=== PATIENT | female | born 1990 | race Two or more races ===

== ENCOUNTER 2025-06-07 19:06 | Emergency (ER) | payer MEDICAID, SELFPAY ==
[2025-06-07 20:01] VITALS: BP 107/61; PULSE 94; RESP 19; TEMP 37.3; O2SAT 100; BMI 49.4
--- NOTE | 2025-06-07 20:07 | XR_ITS ---
Examination: Complete OB ultrasound greater than 14 weeks Date and time of exam: June 07, 2025, 2100 hrs. Indications: Vaginal bleeding pelvic and back pain today Findings: Viable intrauterine single fetus with single amniotic sac breech Cardiac motion 147 BPM Placenta grade 1. Nuchal cord insertion seen. Amniotic fluid adequate. Cervix 4.1 cm spine maternal right. Right ovary obscured by bowel gas. Left ovary 3.4 cm . Composite estimated gestational age based on BPD, head circumference, abdominal circumference, femur length is 15 weeks 4 days Estimated weight 1 25 g. Survey of intracranial anatomy, spinal anatomy, abdominal anatomy, four-chamber heart performed with no abnormalities identified. Impression: Viable intrauterine gestation breech presentation
--- NOTE | 2025-06-07 20:16 | PD.EDVAGBL ---
ED OB Contraction Preg RMI/HPI General Chief complaint: Abdominal Pain Stated complaint: VAG BLEED 15 WEEKS PREGNAT Time Seen by Provider: 06/07/25 20:07 Arrival date/time: 06/07/25 19:06 34F at approximately 15 weeks and with history of psych presents to ED with 2 day of pelvic/back pain and and vaginal bleeding. Patient denies dysuria. Limitations: no limitations Related Data Home Medications ?Medication ?Instructions ?Recorded ?Confirmed semaglutide (weight loss) 2.4 2.4 mg subcut QWEEK 07/26/24 07/26/24 mg/0.75 mL subcutaneous pen injector (Wegovy) sertraline 50 mg tablet 50 mg PO QDAY 07/26/24 07/26/24 Previous Rx's ?Medication ?Instructions ?Recorded ibuprofen 600 mg tablet 600 mg PO Q8H PRN pain (scale 12/17/21 score 4-6) #15 tabs Allergies Allergy/AdvReac Type Severity Reaction Status Date / Time acetaminophen (From Vicodin) Allergy Rash Verified 07/26/24 14:21 hydrocodone (From Vicodin) Allergy Rash Verified 07/26/24 14:21 Review of Systems Review of Systems Systems Reviewed: All systems reviewed, normal except as documented Constitutional Constitutional: Reports system reviewed and no additional complaints, except as documented, Denies fever(s) and Denies headache(s) ENT Ears, Nose, Mouth, and Throat: Denies disequilibrium and Denies headache(s) Cardiovascular Cardiovascular: Reports system reviewed and no additional complaints, except as documented, Denies chest pain and Denies dyspnea Respiratory Respiratory: Reports system reviewed and no additional complaints, except as documented, Denies cough and Denies dyspnea Gastrointestinal Gastrointestinal: Reports system reviewed and no additional complaints, except as documented, Denies abdominal pain, Denies nausea and Denies vomiting Genitourinary Genitourinary: Reports as per HPI, Reports abnormal vaginal bleeding, Reports flank pain and Reports pelvic pain Neurologic Neurologic: Reports system reviewed and no additional complaints, except as documented, Denies confusion, Denies disequilibrium and Denies headache(s) Psychiatric Psychiatric: Denies confusion Past Medical History Past Medical History NEUROLOGIC: Negative Neurological Disorders or Seizures CARDIAC: Negative Cardiac Disorders or Congestive Heart Failure RESPIRATORY: Positive Sleep Apnea; Negative Chronic Obstructive Pulmonary Disease (COPD) GASTROINTESTINAL: Positive Gastrointestinal Disorders, Gall Bladder Disease, Gastroesophageal Reflux Disease and Obesity; Negative Hepatitis or Colorectal Cancer GENITOURINARY: Negative Genitourinary Disorders, Renal Disease or Prostate Cancer REPRODUCTIVE: Positive Previous Pregnancies; Negative Breast Cancer, Endometriosis, Pelvic Inflammatory Disease, Testicular Cancer or Uterine Prolapse MUSCULOSKELETAL: Negative Musculoskeletal Disorders or Bone Cancer ENDOCRINE: Negative Endocrine Disorders, Diabetes Mellitus Type 1, Diabetes Mellitus Type 2, Hyperthyroidism or Hypothyroidism HEMATOLOGIC: Negative Blood Disorders or Anemia PSYCHO/SOCIAL: Positive Anxiety; Negative Depression or Post Traumatic Stress Disorder OTHER HISTORY: Positive Chicken Pox; Negative Hospitalization, Autoimmune Disease, Down Syndrome, Developmental Delay, Shingles, Falls, Blood Transfusions, Anesthesia Reactions, Organ Transplant, Chemotherapy, Radiation Therapy, Hyperbaric Therapy, MRSA, VRSA, Vancomycin-Resistant Enterococci, Human Immunodeficiency Virus (HIV), Measles, Mumps, Rubella ([place] Measles), Pertussis, Clostridium Difficile, Cancer, Breast Cancer, Cervical Cancer, Colorectal Cancer, Lung Cancer, Ovarian Cancer, Prostate Cancer or Testicular Cancer Family History FAMILY HISTORY: Negative Family Psychiatric Problems, Family Respiratory Disorders, Family Cardiac Disorders, Family Gastrointestinal Problems, Family Cancer, Family Surgery or Family Anesthesia Reaction Surgical History SURGICAL: Negative Cardiac Surgery, Endocrine Surgery, Ear Surgery, Abdominal Surgery, Nephrectomy, Joint Replacement, Neurologic Surgery, Mastectomy, Lumpectomy, Hysterectomy, Tubal Ligation, Section or Organ Transplant Social History SMOKING STATUS: Never smoker SECOND HAND EXPOSURE: No ED Exam General Limitations: Present no limitations General appearance: Present alert and in no apparent distress Head Head exam: Present atraumatic Eye Eye exam: Present normal appearance, PERRL and EOMI ENT ENT exam: Present normal exam, normal oropharynx and mucous membranes moist Neck Neck exam: Present normal inspection, full ROM and trachea midline Chest Chest inspection: Present normal inspection and symmetric chest wall rise Respiratory Respiratory exam: Present normal lung sounds bilaterally Cardiovascular Cardiovascular exam: Present regular rate, normal rhythm and normal heart sounds Abdominal Exam Abdominal exam: Present soft and normal bowel sounds Extremities Exam Extremities exam: Present normal inspection and full ROM Back Exam Back exam: Present normal inspection and full ROM Neurological Exam Neurological exam: Present alert, oriented X3 and CN II-XII intact Psychiatric Psychiatric exam: Present normal affect and normal mood Skin Skin exam: Present warm, dry, intact and normal color Course Quality Measures none Orders Category Date Time Status US OB >= 14 weeks Fetus Stat Exams 06/07/25 20:07 Completed ABO/RH Type Stat Lab 09/04/25 20:45 Completed Beta HCG,Quantitative Stat Lab 06/07/25 20:45 Completed CBC Stat Lab 06/07/25 20:45 Completed CMP [Comprehensive Metabolic Panel] Stat Lab 06/07/25 20:45 Completed UA [Urinalysis] Stat Lab 06/07/25 20:34 Completed Urine Culture Stat Lab 06/07/25 20:34 Received Vital Signs Vital signs: Vital Signs Temperature 99.1 F 06/07/25 20:01 Pulse Rate 94 06/07/25 20:01 Respiratory Rate 19 06/07/25 20:01 Blood Pressure 107/61 06/07/25 20:01 Pulse Oximetry (%) 100 06/07/25 20:01 Oxygen Delivery Method Room Air 06/07/25 20:01 O2 at 100% on RA and WNLs Vaginal Bleeding MDM Narrative MDM Narrative: 34F at approximately 15 weeks and with history of psych presents to ED with 2 day of pelvic/back pain and and vaginal bleeding. Patient denies dysuria. Physical exam reveals no ab tenderness. Patient is afebrile, calm, and alert. US normal IUP with normal FHR. No leukocytosis or gross anemia. UA unremarkable. CMP unremarkable. O+ blood type. [employer] given. Patient data External records reviewed:: [facility] previous records Clinical information provided by:: patient Social determinants that could affect healthcare access:: mental health Patient has the following chronic illnesses:: psych How is presenting disease/condition affected by chronic disease/condition?: uneffected by Evaluation data The following diagnostics were reviewed and interpreted by me:: lab results and radiology exam(s) Lab and/or radiology exams considered but not ordered:: ordered Interpretation Summary: above Medications / Prescriptions Medications or Prescriptions considered but not ordered:: not ordered Medication administrations:: n/a Consultations Consultation(s) initiated? (list below): No Diagnosis Vaginal Bleeding Differential Diagnosis: missed , threatened , dysfunctional uterine bleeding, menometrorrhagia, incomplete , ectopic without intrauterine , vaginal bleeding and other (vaginal bleeding in ) Most likely diagnosis given after review of the tests above:: vaginal bleeding in Admission Indicated Admission indicated?: not indicated Admission Request Was there a request for admission?: No Disposition Plan Disposition Plan: Discharge Discharge Attestation Discharge Attestation: The patient and all family members were given an opportunity to ask questions and understood the discharge instructions. Discharge instructions specifically effects, indications for sooner follow up or return to the emergency department, and the expected course of current diagnosis. Patient condition: Stable Discharge Plan Plan Patient Disposition: HOME (Self Care) Discharge Disposition comment: Stable Prescriptions/Referrals Prescriptions/Med Rec: No Action sertraline 50 mg tablet 50 mg PO QDAY Wegovy 2.4 mg/0.75 mL pen injector 2.4 mg subcut QWEEK ibuprofen 600 mg tablet 600 mg PO Q8H PRN (Reason: pain (scale score 4-6)) Qty: 15 0RF Referrals: No Primary/Family,Physician [Primary Care Provider] - In 1 week Problem List Clinical Impression: Vaginal bleeding in Patient/Caregiver Discharge Instructions Education Materials: Bleeding During Early Additional Instructions: Please follow-up with PCP/OBYGN within 24-48 hours and return immediately if symptoms worsen. Print Language: [place] Zealander Stand Alone Forms: Patient Portal Info Letter TEJA/ANASTACIA Supervising Physician DAVI Supervising Physician: Dr. Gordillo
[2025-06-07 20:41] LABS: Collection Type, Urine Clean Catch
[2025-06-07 20:48] LABS: Amorphous Crystals,Urine Present (Absent); Bacteria,Urine Rare; Bilirubin,Urine Negative (Negative); Blood,Urine Trace (Negative); Budding Yeast,Urine Present; Clarity,Urine Turbid (Clear/Hazy); Color,Urine Lt-Yellow (Lt Yel-Yel); Glucose, Urine Negative (Negative); Ketones,Urine Negative (Negative); Leukocyte Esterase,Urine Negative (Negative); Nitrite,Urine Negative (Negative); PH,Urine 7.0 (5.0-7.0); Protein,Urine Negative (Neg - Trace); RBC,Urine 3 /hpf (0-3); Specific Gravity,Urine 1.015 (1.001-1.035); Squamous Epithelial Cell,Urine 1 /hpf (0-5); Urobilinogen,Urine Negative mg/dL (0.0-1.0); WBC,Urine 5 /hpf (0-5)
[2025-06-07 21:31] LABS: Basophils # (Auto) 0.0 Thou/mm3 (0.0-0.2); Basophils % (Auto) 0 % (0-2.5); Eosinophils # (Auto) 0.1 Thou/mm3 (0.0-0.5); Eosinophils % (Auto) 1 % (0-10); Hematocrit 35.1 % (36.0-46.0); Hemoglobin 11.3 g/dL (12.0-16.0); Immature Granulocytes Auto 0.06 Thou/mm3 (0.00-0.00); Lymphocytes # (Auto) 2.0 Thou/mm3 (1.0-4.8); Lymphocytes % (Auto) 27 % (10-50); Mean Corpuscular HGB Conc 32.2 g/dl (31.0-37.0); Mean Corpuscular Hemoglobin 28.5 pg (25.0-35.0); Mean Corpuscular Volume 88 fL (80-100); Monocytes # (Auto) 0.6 Thou/mm3 (0.0-0.8); Monocytes % (Auto) 8 % (0-12); Neutrophils # (Auto) 4.9 Thou/mm3 (1.8-7.7); Neutrophils % (Auto) 64 % (37-80); Nucleated Red Blood Cell # 0.00 Thou/mm3 (0.00-0.00); Nucleated Red Blood Cell % 0 /100 WBC (0); Platelet Count 184 Thou/mm3 (140-440); RDW Standard Deviation 44.0 fL (36.4-46.3); Red Blood Count 3.97 Miln/mm3 (4.00-5.20); White Blood Count 7.6 Thou/mm3 (3.6-11.0)
[2025-06-07 22:13] LABS: Alanine Aminotransferase 10 U/L (10-49); Albumin, Serum 3.8 gm/dL (3.5-5.0); Albumin/Globulin Ratio 1.4 (1.2-2.2); Alkaline Phosphatase 47 U/L (46-116); Anion Gap 11 (7-16); Aspartate Amino Transferase 14 U/L (0-34); BUN/Creatinine Ratio 8 Ratio (12-20); Bilirubin,Total 0.4 mg/dL (0.3-1.2); Blood Urea Nitrogen < 5 mg/dL (9-23); Calcium 9.3 mg/dL (8.3-10.6); Calcium (Corrected) 9.5 mg/dL (8.5-10.1); Carbon Dioxide 22.5 mMol/L (20.0-31.0); Chloride 107 mMol/L (98-107); Creatinine (Component) 0.6 mg/dL (0.6-1.3); Estimated Creatinine Clearance 163.3 mL/min (>60); Globulin 2.7 gm/dL (2.3-3.5); Glucose 86 mg/dL (74-106); Osmolality,Calculated 275 (275-295); Potassium 3.8 mMol/L (3.4-5.1); Sodium 140 mMol/L (136-145); Total Protein 6.5 gm/dL (5.7-8.2); eGFR > 60 See Note
[2025-06-07 22:23] LABS: Beta HCG,Quantitative 16286 mIU/mL (<5.0)
== END 2025-06-07 22:41 | disposition home or self-care (01) ==
PROVIDERS: Physician Assistant; Emergency Provider Emergency Medicine
DX: O20.9 Hemorrhage in early pregnancy, unspecified (principal); Z3A.15 15 weeks gestation of pregnancy
CPT/HCPCS: 36415; 76805; 80053; 81001; 84702; 85025; 86900; 86901; 87086; 99283